=== PATIENT | female | born 1985 | race Caucasian/White ===

== ENCOUNTER 2021-01-18 04:47 | Inpatient (IN) ==
[2021-01-18] MEDS ORDERED: Lactated Ringers 1000 ml BAG 1,000 ML IV ONE (06:00)
[2021-01-18] MEDS ORDERED: Lactated Ringers 1000 ml BAG 1,000 ML IV SCH ×2 (06:00→22:00)
[2021-01-18] MEDS ORDERED: Buffered Lidocaine 1% SYRIN 1 ml INTRADERM ONE (06:00)
[2021-01-18 06:39] LABS: Urine Benzodiazepine Screen None Detected (None Detect); Urine Cannabinoids Screen None Detected (None Detect); Urine Opiates Screen None Detected (None Detect)
[2021-01-18] MEDS ORDERED: Glycerin ADULT 2.4 gm SUPP PR PRN (21:26)
[2021-01-18] MEDS ORDERED: Witch Hazel PAD JAR TOPICAL PRN (21:26)
[2021-01-18] MEDS ORDERED: Dibucaine 1% OINT 28.35 GM TUBE PR PRN (21:26)
[2021-01-19 06:42] LABS: ABS Lymphocytes 1.8 10^3/ul (1.0-4.8); ABS Monocytes 1.1 10^3/ul (0-0.8); Hematocrit 26 % (35-47); Hemoglobin 8.1 g/dL (12.0-16.0); Lymphocyte % 8.8 %; Mean Corpuscular HGB Conc 32 g/dL (31-36); Mean Corpuscular Hemoglobin 22 pg (27-31); Mean Corpuscular Volume 70 fL (80-97); Mean Platelet Volume 9.2 fL (7.4-10.4); Nucleated Red Blood Cells % 0.1; Platelet Count 203 10^3/uL (150-450); Red Blood Count 3.71 10^6 /uL (3.70-4.87); Red Cell Distribution Width 18 % (10-15)
[2021-01-19 21:01] VITALS: BP 100/64
[2021-01-20] MEDS ORDERED: Tetan/Diph/Pertus SYR(Tdap) 0.5 ML SYR(BOOSTRIX) use SYR contains LATEX IM ONE (09:00)
== END 2021-01-20 13:55 | disposition home or self-care (01) | DRG 560 ==
LOC: MCHOBOUT 04:47 → MCHOB 05:33
PROVIDERS: ADMIT Midwife; ATTEND Midwife